=== PATIENT | male | born 1975 | race Caucasian/White ===

== ENCOUNTER 2016-11-14 10:39 | Day surgery (SDC) | payer OTHER ==
--- NOTE | 2016-11-14 12:24 | ED Physician Documentation ---
History of Present Illness - Stated complaint Stated Complaint: ABSESS/MALE - Chief complaint Chief Complaint: General - History obtained from History obtained from: Patient - History of Present Illness Timing: Other (Previously healthy 41-year-old gentleman. A few years ago had a perirectal abscess that resolved on its own without medical intervention. The last 9 days he has had circumferential perirectal abscess with pain. He had a fever a week ago which broke. He has had some drainage. No symptoms to suggest underlying inflammatory bowel disease, no chronic abnormal bowel movements or unintended weight loss.) Review of Systems Ten Systems: 10 systems reviewed and negative Constitutional: reports: Fever, Chills GI: denies: Abdominal Pain, Nausea, Vomiting, Constipation, Diarrhea PD PAST MEDICAL HISTORY - Past Medical History Past Medical History: No - Past Surgical History Past Surgical History: No - Present Medications Home Medications: Ambulatory Orders Medication Instructions Recorded Confirmed No Known Home Medications [No 11/14/16 11/14/16 Known Home Medications] - Allergies Allergies/Adverse Reactions: Allergies Allergy/AdvReac Type Severity Reaction Status Date / Time codeine Allergy Hallucinati Verified 11/14/16 11:06 ons - Social History Does the pt smoke?: No Smoking Status: Never smoker Does the pt drink ETOH?: No Does the pt have substance abuse?: No - Family History Family history: reports: Non contributory - Immunizations Immunizations are current?: Yes PD ED PE NORMAL - Vitals Vital signs reviewed: Yes - General General: Alert and oriented X 3, No acute distress - HEENT HEENT: Ears normal, Pharynx benign - Neck Neck: Supple, no meningeal sign, No bony TTP - Cardiac Cardiac: RRR, No murmur - Respiratory Respiratory: No respiratory distress, Clear bilaterally - Abdomen Abdomen: Normal bowel sounds, Soft, Non tender - Rectal Rectal: Other (Perirectal abscess running from 9 oclock to 3 oclock, biggest at 9 oclock) - Back Back: No CVA TTP, No spinal TTP - Derm Derm: Normal color, Warm and dry - Extremities Extremities: No edema, No calf tenderness / cord - Neuro Neuro: Alert and oriented X 3, Normal speech - Psych Psych: Normal mood, Normal affect Results - Vitals Vitals: Vital Signs - 24 hr 11/14/16 11:02 Temperature 37 C Heart Rate 78 Respiratory 16 Rate Blood Pressure 118/71 O2 Saturation 99 Oxygen O2 Source Room air - Labs Labs: Laboratory Tests 11/14/16 11/14/16 12:30 12:30 WBC 15.9 H RBC 4.85 Hgb 14.4 Hct 42.2 MCV 86.9 MCH 29.8 MCHC 34.2 RDW 12.6 Plt Count 281 MPV 7.9 Manual Slide Review Indicated Sodium 138 Potassium 3.7 Chloride 100 L Carbon Dioxide 28 Anion Gap 10.0 BUN 9 Creatinine 1.2 Estimated GFR (MDRD) 67 L Glucose 97 Calcium 9.0 PD MEDICAL DECISION MAKING - Consults Consults: Consulted (name) (Dr Holloway by phone at 12;58pm, she will see him in ED) Departure - Departure Disposition: ED Transfer to [facility] Clinical Impression: Perirectal abscess Condition: Stable
[2016-11-14 12:38] LABS: BASOPHILS # (AUTO) 0.1 10^3/uL (0.0-0.1); BASOPHILS % (AUTO) 0.8 %; EOSINOPHILS # (AUTO) 0.1 10^3/uL (0.0-0.7); EOSINOPHILS % (AUTO) 0.6 %; HCT - HEMATOCRIT 42.2 % (42.0-52.0); HGB - HEMOGLOBIN 14.4 g/dL (14.0-18.0); LYMPHOCYTES # (AUTO) 1.8 10^3/uL (1.5-3.5); LYMPHOCYTES % (AUTO) 11.1 %; MEAN CORPUSCULAR HEMOGLOBIN 29.8 pg (27.0-31.0); MEAN CORPUSCULAR HGB CONC 34.2 g/dL (32.0-36.0); MEAN CORPUSCULAR VOLUME 86.9 fL (80.0-94.0); MEAN PLATELET VOLUME 7.9 fL (7.4-11.4); MONOCYTES # (AUTO) 1.6 10^3/uL (0.0-1.0); NEUTROPHILS # (AUTO) 12.3 10^3/uL (1.5-6.6); NEUTROPHILS % (AUTO) 77.5 %; RED BLOOD COUNT 4.85 10^6/uL (4.70-6.10); RED CELL DISTRIBUTION WIDTH 12.6 % (12.0-15.0); UNCORRECTED WHITE BLOOD COUNT 15.9 x10^3/uL; WHITE BLOOD COUNT 15.9 x10^3/uL (4.8-10.8)
[2016-11-14 12:47] LABS: CREATININE 1.2 mg/dL (0.6-1.2); POTASSIUM 3.7 mmol/L (3.5-5.0)
[2016-11-14] MEDS ORDERED: KETOROLAC 60 MG/2 ML VIAL IVP STA (12:53)
[2016-11-14] MEDS ORDERED: PIPERACILLIN/TAZOBACTAM 3.375 GM in SODIUM CHLORIDE 0.9% MINIBAG 100 ML IV STA (12:58)
[2016-11-14] MEDS ORDERED: KETOROLAC 30 MG/ML VIAL ONE (13:13)
[2016-11-14 14:54] LABS: PLATELET ESTIMATE, MANUAL NORMAL (130-450,000) (NORMAL); PLATELET MORPHOLOGY NORMAL APPEARANCE (NORMAL); WBC MORPHOLOGY (MULTIPLE) NORMAL APPEARANCE (NORMAL)
--- NOTE | 2016-11-14 15:07 | HISTORY & PHYSICAL EXAMINATION ---
DATE OF ADMISSION: 11/14/2016 ADMITTING PHYSICIAN: Jeanne Holloway MD. REASON FOR ADMISSION: Perirectal abscess. HISTORY OF PRESENT ILLNESS: This is a 41-year-old gentleman who presented to the emergency department today for a 1-day history of perirectal pain and drainage. He also complains of fevers and chills at home, although this improved today, but his pain was not improving. The patient states that he had one similar episode approximately 3-4 years ago, where he felt that he had a boil in the same region and he was able to drain it at home and it resolved. He states that this current episode has lasted for approximately 10 days. He was febrile at home, but today is afebrile. He states that the lesion initially was draining slightly, although it has stopped. He denies any diarrhea or constipation or abdominal pain or blood in his stools. He has an appointment with a GI physician for this problem. PAST MEDICAL HISTORY: None. PAST SURGICAL HISTORY: None. HOME MEDICATIONS: None. ALLERGIES TO MEDICATIONS: CODEINE. 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 PHYSICAL EXAMINATION VITAL SIGNS: Temperature is 37.6, blood pressure is 118/71, heart rate is 78, respiratory rate 16, O2 saturation is 99% on room air. GENERAL: The patient is awake, alert, oriented x3, in no acute distress. He is of average build. CARDIOVASCULAR: Regular rate and rhythm. CHEST: Clear to auscultation bilaterally. ABDOMEN: Soft and nondistended. RECTAL: Exam reveals a very tender erythematous area in the 9 o'clock to 3 o' clock perianal position. There is underlying fluctuance. This appears to be representing a horseshoe abscess. EXTREMITIES: Nonedematous. LABORATORY VALUES: White blood cell count 15.9, hemoglobin 14.4, hematocrit 42.2 , platelets 281. Sodium 138, potassium 3.7, chloride 100, bicarbonate 28, BUN 9 , creatinine 1.2, glucose 97. ASSESSMENT: This is a 41-year-old gentleman with a horseshoe perirectal abscess. PLAN: The patient will be taken to the operating room for incision and drainage of the perirectal abscess. In the interim, he will be placed on IV antibiotics. JOB #: [id number] EXT JOB #:[id number] VIVI
[2016-11-14] MEDS ORDERED: BUPIVACAINE 0.5%-EPI 1:200000 PF 30 ML VIAL SUBQ ONE (16:06)
[2016-11-14] MEDS ORDERED: LACTATED RINGERS 1,000 ML IV ONE (16:06)
[2016-11-14] MEDS ORDERED: KETOROLAC 30 MG/ML VIAL IVP ONE (16:16)
[2016-11-14] MEDS ORDERED: MIDAZOLAM 2 MG/2 ML VIAL IVP ONE (16:16)
[2016-11-14] MEDS ORDERED: ONDANSETRON 4 MG/2 ML VIAL IVP ONE (16:16)
[2016-11-14] MEDS ORDERED: fentaNYL 100 MCG/2 ML VIAL IVP ONE (16:16)
[2016-11-14] MEDS ORDERED: PROPOFOL 200 MG/20 ML VIAL IVP ONE (16:16)
[2016-11-14] MEDS ORDERED: DEXAMETHASONE 4 MG/ML VIAL IVP ONE (16:16)
[2016-11-14] MEDS ORDERED: ceFAZolin 1 GM VIAL IV ONE (16:16)
[2016-11-14] MEDS ORDERED: HYDROmorphone 1 MG/ML SYRINGE IVP ONE (16:16)
[2016-11-14] MEDS ORDERED: SUCCINYLCHOLINE 200 MG/10 ML VIAL IVP ONE (16:16)
[2016-11-14] MEDS ORDERED: LIDOCAINE-MPF 2% 5 ML VIAL IM ONE (16:16)
--- NOTE | 2016-11-14 17:30 | OPERATIVE REPORT ---
DATE OF SURGERY: 11/14/2016 00:00:00 SURGEON: Jeanne Holloway MD. PREOPERATIVE DIAGNOSIS: Perirectal abscess. POSTOPERATIVE DIAGNOSIS: Perirectal abscess with perirectal fistula. INDICATION FOR PROCEDURE: This is a 41-year-old gentleman who presented to the emergency department with a 1-week history of perianal pain and drainage becoming much worse today. FINDINGS: After obtaining informed consent from the patient, he was brought into the operating room and positioned on the operating table in the prone position, taking note of pressure points. He was intubated by Anesthesia. He was prepped and draped in the usual sterile fashion. 2 grams of Ancef was administered. A time-out was taken according to protocol. The perirectal area was inspected and a 1 cm incision overlying the area of fluctuance was created. The evacuation of purulent fluid occurred. This was sent for culture and sensitivity. A finger was inserted into the abscess cavity and loculations were broken up. The abscess was tracking internally towards the rectum. An internal opening was noted at the anal verge. A lacrimal probe was inserted here and the fistulous tract was identified. This was opened using electrocautery. I again inspected the abscess cavity and ensured all loculations were broken up. The cavity was then copiously irrigated. The cavity was noted to be approximately 6 cm deep and 3 cm wide. After copious irrigation, the cavity was packed with half -inch iodoform packing. Bacitracin was then applied. Sterile dressings and underwear were then applied. The patient was extubated and taken to recovery room in stable condition. 30 mL of local anesthetic was administered. ESTIMATED BLOOD LOSS: 5 mL. COMPLICATIONS: None. SPECIMENS: Wound cultures. JOB #: [id number] EXT JOB #:[id number]
[2016-11-14 17:33] VITALS: BP 125/47
== END 2016-11-14 13:51 | disposition home or self-care (01) ==
LOC: ED 10:39 → SDS 13:50
PROVIDERS: ATTEND Surgery
PROC: 0D9P0ZZ Drainage of Rectum, Open Approach (ICD-10-PCS; principal; 2016-11-14 17:45)
DX: K61.1 Rectal abscess (principal); Z87.891 Personal history of nicotine dependence; Z88.5 Allergy status to narcotic agent
CPT/HCPCS: 36415; 46040; 80048; 85025; 87070; 87077; 87181; 87205; 96374; 96375; 99283; 99284; J1170; J7120